=== PATIENT | male | born 1945 | race Caucasian/White ===

== ENCOUNTER → 2021-08-03 15:35 | Outpatient (CLI) | payer OTHER, SELFPAY ==
[2021-08-03 16:12] LABS: COVID19 -Nasal RAPID Negative (Negative)
== END ==
PROVIDERS: Referring Provider Physician Assistant; Visit Provider Physician Assistant
DX: Z20.822 Contact with and (suspected) exposure to COVID-19 (principal)
CPT/HCPCS: 87635

== ENCOUNTER → 2021-08-09 15:35 | Outpatient (CLI) | payer MEDICARE, SELFPAY ==
[2021-08-09 17:30] LABS: COVID19 -Nasal RAPID Negative (Negative)
== END ==
PROVIDERS: Visit Provider Physician Assistant
DX: Z20.822 Contact with and (suspected) exposure to COVID-19 (principal)
CPT/HCPCS: 87635